=== PATIENT | male | born 1985 | race Asian ===

== ENCOUNTER 2021-07-29 15:29 | Emergency (ER) | payer OTHER ==
[~2021-07-29] VITALS: Ht 167.6 cm; Wt 83.2 kg
[~2021-07-29 15:29] MED LIST: FOLI-115 PO
[2021-07-29 17:57] LABS: APPEARANCE,URINE CLEAR (CLEAR); BILIRUBIN,URINE NEGATIVE (NEGATIVE); GLUCOSE, URINE (UA) NEGATIVE (NEGATIVE); KETONES,URINE NEGATIVE (NEGATIVE); LEUKOCYTE ESTERASE ,URINE NEGATIVE (NEGATIVE); NITRATE,URINE NEGATIVE (NEGATIVE); OCCULT BLOOD,URINE NEGATIVE (NEGATIVE); PROTEIN,URINE NEGATIVE (NEGATIVE)
[2021-07-29 18:21] LABS: BACTERIA,URINE None Seen /HPF (None Seen); RBC,URINE None Seen /HPF (0-2); SQUAMOUS EPITHELIAL CELL,UR Few /LPF (None Seen); WBC,URINE 0-2 /HPF (0-5)
[2021-07-29] MEDS ORDERED: LEVOFLOXACIN 500 MG TABLET PO ONE (18:30)
[2021-07-29 18:36] VITALS: BP 113/68
== END 2021-07-29 18:38 | disposition home or self-care (01) ==
LOC: EMS 15:29
DX: N45.1 Epididymitis (principal); I10 Essential (primary) hypertension
CPT/HCPCS: 76870; 81001; 87491; 87591; 99284; Z7502; Z7610